=== PATIENT | male | born 1960 | race Caucasian/White ===

== ENCOUNTER → 2024-01-03 | Outpatient (CLI) | payer MEDICARE ==
--- NOTE | 2024-01-03 15:41 | CT ---
EXAMINATION TYPE: CT lumbar spine wo con DATE OF EXAM: 01/03/2024 3:12 PM COMPARISON: Abdomen HISTORY: Chronic lower back pain CT DLP: 1113.5 mGycm Automated exposure control for dose reduction was used. Unenhanced CT of the lumbar spine was performed. Bone and soft tissue window settings are submitted as well as coronal and sagittal reconstructions. L1-L2: Normal disc space height. No disc herniation protrusion or central stenosis. No facet joint arthropathy. No evidence for foraminal encroachment. L2-L3: Normal disc space height. No disc herniation protrusion or central stenosis. No facet joint arthropathy. No evidence for foraminal encroachment. L3-L4: Moderate degenerative disc space narrowing with posterior disc bulge. Constriction of the thec al sac with mild central stenosis noted. Hypertrophy of ligamentum flavum. Mild right-sided foraminal encroachment. L4-L5: Fusion changes noted with pedicular screws in place. 2 mm anterolisthesis of L4 on L5. No evid ence or recurrent process. L5-S1: Fusion Changes noted with decompressive laminectomy. Intervertebral spacer is in place. Postop erative alignment is near-anatomic. No evidence for recurrent process. Mild ventral and dorsal spondy losis. IMPRESSION: 1. Postoperative changes with alignment as discussed above. 2. mild central stenosis at L3-4 as discussed.
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
== END | disposition home or self-care (01) ==
LOC: RADMRIMAIN 14:52
PROVIDERS: ATTEND Orthopaedic Surgery
DX: M48.061 Spinal stenosis, lumbar region without neurogenic claudication (principal); M99.73 Connective tissue and disc stenosis of intervertebral foramina of lumbar region; M47.26 Other spondylosis with radiculopathy, lumbar region; M51.16 Intervertebral disc disorders with radiculopathy, lumbar region; Z98.1 Arthrodesis status
CPT/HCPCS: 72131; 72148

== ENCOUNTER 2024-06-14 20:29 | Emergency (ER) | payer MEDICARE, OTHER ==
[2024-06-14 20:35] VITALS: RESP 16
[2024-06-14] MEDS: ONDANSETRON 4 MG/2 ML VIAL IVP STA (20:38)
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
[2024-06-14] MEDS: HYDROmorphone 1 MG/ML 1 ML SYRINGE IVP STA ×2 (20:40→20:53)
[2024-06-14] MEDS: TRANEXAMIC 1,000 MG/100ML-NACL 1,000 MG in SALINE 1 100ML.BAG IV STA (20:40)
[2024-06-14] MEDS: DIPH,PERTUS(ACELL)TETVAC-LF 0.5 ML VIAL IM ONE (20:41)
[2024-06-14] MEDS: SODIUM CHLORIDE 0.9% 1,000 ML IV STA (20:43)
[2024-06-14 20:48] LABS: Basophils % (A) 0 %; Eosinophils # (A) 0.1 k/uL (0-0.7); Eosinophils % (A) 1 %; HCT 43.4 % (39.0-53.0); HGB 14.3 gm/dL (13.0-17.5); Lymphocytes # (A) 1.6 k/uL (1.0-4.8); Lymphocytes % (A) 13 %; MCH 31.5 pg (25.0-35.0); MCHC 32.8 g/dL (31.0-37.0); Mean Platelet Volume 7.2; Monocytes # (A) 0.8 k/uL (0-1.0); Monocytes % (A) 7 %; Neutrophils # (A) 9.4 k/uL (1.3-7.7); Neutrophils % (A) 78 %; Platelet Count 332 k/uL (150-450); RBC 4.52 m/uL (4.30-5.90); RDW 12.5 % (11.5-15.5)
[2024-06-14 21:02] LABS: ALT 26 U/L (4-49); African American GFR (CKD) 55 (>60 ml/min/1.73 sqM); Albumin 4.4 g/dL (3.5-5.0); Alcohol <10 mg/dL; Anion Gap 12 mmol/L; Blood Urea Nitrogen 21 mg/dL (9-20); Calcium 9.4 mg/dL (8.4-10.2); Carbon Dioxide 18 mmol/L (22-30); Chloride 104 mmol/L (98-107); Glucose 163 mg/dL (74-99); Non-African American GFR(CKD) 47 (>60 ml/min/1.73 sqM); Sodium 134 mmol/L (137-145); Total Bilirubin 1.1 mg/dL (0.2-1.3); Total Protein 6.5 g/dL (6.3-8.2)
[2024-06-14] MEDS: TRANEXAMIC ACID 1,000 MG in SODIUM CHLORIDE 0.9% 250 ML IV ONE (21:02)
[2024-06-14 21:09] LABS: Potassium 4.1 mmol/L (3.5-5.1)
[2024-06-14 21:10] LABS: AST 38 U/L (17-59); Alkaline Phosphatase 53 U/L (38-126)
[2024-06-14 21:12] LABS: Prothrombin Time 11.4 sec (10.0-12.5)
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
[2024-06-14 21:32] VITALS: BP 121/88; PULSE 108; TEMP 97.1
[2024-06-14 21:46] LABS: Partial Thromboplastin Time 21.7 sec (22.0-30.0)
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
== END 2024-06-14 20:55 | disposition other institution (70) ==
LOC: MERGE 20:29 → EDBD 20:29 → EC 20:29
DX: S01.83XA Puncture wound without foreign body of other part of head, initial encounter (principal); Z23 Encounter for immunization; W34.00XA Accidental discharge from unspecified firearms or gun, initial encounter
CPT/HCPCS: 36415; 86900; 86901; 80053; 84484; 85025; 85610; 85730; 86850; 72170; 71045; 90715; 90471; 96374; 96375 ×3; 99291; G0390; G0480; J0690; J2405; J1170; 80320